=== PATIENT | female | born 1960 | race American Indian/Alaskan Native ===

== ENCOUNTER 2020-09-29 08:55 | Outpatient (REF) | payer OTHER, SELFPAY ==
[2020-09-29 09:32] LABS: Hematocrit 42.9 % (37-47); Hemoglobin 13.7 g/dl (12.0-16.0); Mean Corpuscular HGB Conc 31.9 g/dl (31.0-35.0); Mean Corpuscular Hemoglobin 25.8 pg (27.0-33.0); Mean Corpuscular Volume 80.6 fL (80-98); Mean Platelet Volume 10.7 fL (9.4-12.3); Platelet Count 334 X10*3/uL (160-400); Red Blood Count 5.32 X10*6/uL (4.20-5.50); Red Cell Distribution Width 15.4 % (11.0-16.0); White Blood Count 8.8 X10*3/uL (4.8-10.8)
[2020-09-29 10:19] LABS: Alanine Aminotransferase 21 U/L (0-31); Albumin Level 4.1 g/dL (3.5-5.0); Alkaline Phosphatase 100 U/L (39-117); Anion Gap 13 (12-20); Aspartate Amino Transferase 21 U/L (5-31); Bilirubin Total 0.7 mg/dL (0.0-1.0); Blood Urea Nitrogen 16 mg/dL (9-16); Calcium 9.6 mg/dL (8.4-10.2); Carbon Dioxide 26 mmol/L (22-29); Chloride 103 mmol/L (96-108); Cholesterol 191 mg/dL; Estimated Glomerular Filt Rate > 60; Glucose Random 87 mg/dL (60-115); HDL Cholesterol 52 mg/dL; LDL Cholesterol Calculated 108 mg/dl; Potassium 3.9 mmol/L (3.3-5.1); Sodium 138 mmol/L (135-145); Total Protein 7.7 g/dL (6.5-8.0); Triglycerides 157 mg/dL
[2020-09-29 10:40] LABS: Thyroid Stimulating Hormone 1.56 uIU/mL (0.32-4.0)
[2020-10-03 13:42] LABS: Metanephrine, Free 89 pg/mL (<=57); Normetanephrines, Free 106 pg/mL (<=148); Total Metanephrine, Free 195 pg/mL (<=205)
[2020-10-10 14:57] LABS: Aldosterone/Renin Ratio 9.9 Ratio (0.9-28.9); Plasma Renin Activity 3.23 ng/mL/h (0.25-5.82)
== END 2020-09-29 08:56 | disposition home or self-care (01) ==
LOC: HO.LAB 08:55
PROVIDERS: PCP Internal Medicine; Visit Provider Internal Medicine
DX: E78.00 Pure hypercholesterolemia, unspecified (principal); I10 Essential (primary) hypertension
CPT/HCPCS: 36415; 80053; 80061; 82088; 83835; 84443; 85027

== ENCOUNTER → 2021-01-06 10:30 | Outpatient (BNVA) | payer OTHER, SELFPAY | PROVIDERS: PCP Internal Medicine; Referring Provider Internal Medicine; Visit Provider Internal Medicine Gastroenterology | DX: Z12.11 Encounter for screening for malignant neoplasm of colon (principal); K57.90 Diverticulosis of intestine, part unspecified, without perforation or abscess without bleeding; K59.09 Other constipation; K21.9 Gastro-esophageal reflux disease without esophagitis | CPT/HCPCS: 99212 ==

== ENCOUNTER 2021-04-07 10:17 | Outpatient (REF) | payer OTHER, SELFPAY ==
--- NOTE | ~2021-04-07 | MM_ITS ---
EXAMINATION: MM SCREENING DIGITAL BREAST TOMOSYNTHESIS, BILATERAL CLINICAL INFORMATION: Screening. Asymptomatic. The lifetime risk of breast cancer based on the Tyrer-Cuzick Model is 4%. COMPARISON: Mammography: 04/01/2020, 03/27/2019, 03/21/2018 TECHNIQUE: Digital breast tomosynthesis is performed in both the craniocaudal and mediolateral oblique views along with computer-aided detection (CAD). Synthesized 2D images are generated from the tomosynthesis. Old bilateral exaggerated CC views are provided. FINDINGS: There are scattered areas of fibroglandular density (ACR BI-RADS breast composition Category b). There are no significant masses, abnormal calcifications, or other abnormalities. There are benign bilateral scattered round and rim and coarse calcifications again noted. The axilla and skin contours are unremarkable. MM/MM tomosynthesis screening BI IMPRESSION: No mammographic evidence of malignancy. ASSESSMENT: BI-RADS 2: Benign RECOMMENDATION: Routine annual mammography screening. This patient's information was entered into a reminder system with a target due date for their next mammogram.
== END 2021-04-07 10:18 | disposition home or self-care (01) ==
LOC: HO.MAMMO 10:17
PROVIDERS: PCP Internal Medicine; Visit Provider Internal Medicine
DX: Z12.31 Encounter for screening mammogram for malignant neoplasm of breast (principal)
CPT/HCPCS: 77063; 77067

== ENCOUNTER 2022-04-13 10:18 | Outpatient (REF) | payer OTHER, SELFPAY ==
--- NOTE | ~2022-04-13 | MM_ITS ---
EXAMINATION: MM SCREENING DIGITAL BREAST TOMOSYNTHESIS, BILATERAL CLINICAL INFORMATION: Screening. Asymptomatic. The lifetime risk of breast cancer based on the Tyrer-Cuzick Model is 4%. COMPARISON: Mammography: 04/07/2021, 04/01/2020, 03/27/2019 TECHNIQUE: Digital breast tomosynthesis is performed in both the craniocaudal and mediolateral oblique views along with computer-aided detection (CAD). Synthesized 2D images are generated from the tomosynthesis. Additional right MLO view is provided. FINDINGS: There are scattered areas of fibroglandular density (ACR BI-RADS breast composition Category b). There are no significant masses, abnormal calcifications, or other abnormalities. Parenchymal pattern is similar to prior studies. Again, there are scattered bilateral benign round and rim and some vascular calcifications. No developing density. The axilla and skin contours are unremarkable. MM/MM tomosynthesis screening BI IMPRESSION: No mammographic evidence of malignancy. ASSESSMENT: BI-RADS 2: Benign RECOMMENDATION: Routine annual mammography screening. This patient's information was entered into a reminder system with a target due date for their next mammogram.
== END 2022-04-13 10:19 | disposition home or self-care (01) ==
LOC: HO.MAMMO 10:18
PROVIDERS: PCP Internal Medicine; Visit Provider Internal Medicine
DX: Z12.31 Encounter for screening mammogram for malignant neoplasm of breast (principal)
CPT/HCPCS: 77063; 77067

== ENCOUNTER 2022-05-29 08:32 | Outpatient (REF) | payer OTHER, SELFPAY ==
--- NOTE | ~2022-05-29 | XR_ITS ---
EXAMINATION: XR KNEE, LEFT CLINICAL INFORMATION: Left knee pain COMPARISON: Radiographs left knee 06/26/2016 TECHNIQUE: Four views of the left knee. FINDINGS: No fracture, dislocation, destructive process. There are prominent osteoarthritic changes lateral patellofemoral joint again seen with marked joint narrowing and subchondral sclerosis and mild lateral patellar spurring. There is mild narrowing medial knee joint compartment with marginal osteophytes from the femoral condyles and tibial plateau. No erosive change or definite chondrocalcinosis. There is probable trace fluid suprapatellar bursa. Hoffa's fat pad appears normal. XR/XR knee LT 4V IMPRESSION: 1. Prominent osteoarthritic changes lateral patellofemoral joint. 2. Mild narrowing medial knee joint compartment. Probable trace effusion.
== END 2022-05-29 08:33 | disposition home or self-care (01) ==
LOC: HO.XRAY 08:32
PROVIDERS: PCP Internal Medicine; Visit Provider Pediatrics
DX: M25.562 Pain in left knee (principal)
CPT/HCPCS: 73564

== ENCOUNTER 2022-07-05 10:34 | Outpatient (REF) | payer OTHER, SELFPAY ==
--- NOTE | ~2022-07-05 | MM_ITS ---
EXAMINATION: BONE DENSITOMETRY CLINICAL INDICATION: Menopause. COMPARISON: Baseline BD dated 11/20/2013. TECHNIQUE: Using a Hello [employer] DXA System (software version: 13.1) manufactured by [employer], dual-energy x-ray absorptiometry was performed of the lumbar spine and left hip. The images are of good technical quality. Summary results are attached. FINDINGS: AP SPINE L1-L4: Current: BMD 1.105 g/cm2, Z-score 0.3, T-score -0.6, normal, 4.4% decrease from baseline (<5% change is not significant). Baseline: BMD 1.156 g/cm2. LEFT FEMUR, NECK: Current: BMD 0.922 g/cm2, Z-score 0.2, T-score -0.8, normal. Baseline: BMD 0.941 g/cm2. LEFT FEMUR, TOTAL: Current: BMD 1.091 g/cm2, Z-score 1.4, T-score 0.7, normal, 0.7% decrease from baseline (<5% change is not significant). Baseline: BMD 1.099 g/cm2. IDENTIFIED RISK FACTORS: Menopause, height loss, history of fracture (adult), low calcium intake, tobacco use (current smoker). HISTORY OF FRACTURE: Elbow. MEDICATIONS: None listed. MM/XR DEXA axial skeleton IMPRESSION: 1. DIAGNOSIS: Normal bone density based on the lowest T-score value of -0.8 in the femoral neck applying World Health Organization criteria. 2. 10-YEAR FRACTURE RISK PREDICTION, FRAX: According to the guidelines, FRAX calculation should only be performed on patients in the osteopenia bone density category. Therefore, FRAX was not performed on this patient. 3. Treatment Recommendations: NOF guidelines recommend consideration for treatment in postmenopausal women and men age 50 and older presenting with the following: -A hip or vertebral (clinical or morphometric) fracture. -T-score less than or equal to -2.5 at the femoral neck or spine after appropriate evaluation to exclude secondary causes. -Low bone mass at the hip or spine and a 10-year fracture probability by FRAX of greater than or equal to 3% for hip fracture or greater than or equal to 20% for major osteoporotic fracture based on the [place] adapted WHO algorithm. 4. Other Recommendations: All treatment decisions require clinical judgment and consideration of individual patient factors, including patient preferences, comorbidities, previous drug use, risk factors not captured in the FRAX model (e.g. frailty, falls, vitamin D deficiency, increased bone turnover, interval significant decline in bone density) and possible under or overestimation of fracture risk by FRAX. FUTURE SCAN RECOMMENDATION: People with diagnosed cases of osteoporosis or at high risk for fracture should have regular bone mineral density tests. For patients eligible for Medicare, routine testing is allowed once every 2 years. The testing frequency can be increased to one year for patients who have rapidly progressing disease, those who are receiving or discontinuing medical therapy to restore bone mass, or have additional risk factors.
== END 2022-07-05 10:35 | disposition home or self-care (01) ==
LOC: HO.MAMMO 10:34
PROVIDERS: PCP Internal Medicine; Visit Provider Advanced Practice Midwife
DX: Z13.820 Encounter for screening for osteoporosis (principal); N95.8 Other specified menopausal and perimenopausal disorders
CPT/HCPCS: 77080

== ENCOUNTER 2023-05-29 10:15 | Outpatient (REF) | payer OTHER, SELFPAY ==
--- NOTE | ~2023-05-29 | MM_ITS ---
EXAMINATION: MM SCREENING DIGITAL BREAST TOMOSYNTHESIS, BILATERAL CLINICAL INFORMATION: Screening. Asymptomatic. COMPARISON: Mammography: This study is compared with prior exams dating back to 2016. TECHNIQUE: Digital breast tomosynthesis is performed in both the craniocaudal and mediolateral oblique views along with computer-aided detection (CAD). Synthesized 2D images are generated from the tomosynthesis. FINDINGS: There are scattered areas of fibroglandular density (ACR BI-RADS breast composition Category b). There are no significant masses, abnormal calcifications, or other abnormalities. There are bilateral benign calcifications. MM/MM tomosynthesis screening BI IMPRESSION: No mammographic evidence of malignancy. ASSESSMENT: BI-RADS BI-RADS 2 - Benign Findings RECOMMENDATION: Routine annual mammography screening. 1 year F/U This examination should not preclude the clinical evaluation of a suspicious palpable abnormality. This patient's information was entered into a reminder system with a target due date for their next mammogram.
== END 2023-05-29 10:16 | disposition home or self-care (01) ==
LOC: HO.MAMMO 10:15
PROVIDERS: PCP Internal Medicine; Visit Provider Internal Medicine
DX: Z12.31 Encounter for screening mammogram for malignant neoplasm of breast (principal)
CPT/HCPCS: 77063; 77067

== ENCOUNTER → 2023-05-29 10:30 | Outpatient (BNV) | payer OTHER, SELFPAY | PROVIDERS: PCP Internal Medicine; Visit Provider Radiology Diagnostic Radiology | DX: Z12.31 Encounter for screening mammogram for malignant neoplasm of breast (principal) | CPT/HCPCS: 77063; 77067 ==

== ENCOUNTER 2023-06-27 11:18 | Outpatient (REF) | payer OTHER, SELFPAY ==
[2023-06-27 14:46] LABS: Anion Gap 13 (12-20); Blood Urea Nitrogen 15 mg/dL (9-16); Calcium 9.7 mg/dL (8.4-10.2); Carbon Dioxide 29 mmol/L (22-29); Chloride 101 mmol/L (96-108); Estimated Glomerular Filt Rate > 60; Glucose Random 92 mg/dL (60-115); Potassium 3.9 mmol/L (3.3-5.1); Sodium 139 mmol/L (135-145)
== END 2023-06-27 11:19 | disposition home or self-care (01) ==
LOC: HO.CHCLDS 11:18
PROVIDERS: Visit Provider Internal Medicine
DX: R60.0 Localized edema (principal)
CPT/HCPCS: 36415; 80048

== ENCOUNTER 2023-12-25 14:48 | Outpatient (REF) | payer MEDICARE, SELFPAY | END 2023-12-25 14:49 | disposition home or self-care (01) | LOC: HO.CHCLNP 14:48 | PROVIDERS: Visit Provider Family Medicine | DX: Z01.419 Encounter for gynecological examination (general) (routine) without abnormal findings (principal) | CPT/HCPCS: 88142 ==

== ENCOUNTER 2024-03-25 08:49 | Outpatient (REF) | payer OTHER, SELFPAY | END 2024-03-25 08:50 | disposition home or self-care (01) | LOC: HO.HOSX 08:49 | PROVIDERS: Visit Provider Physician Assistant | DX: Z13.89 Encounter for screening for other disorder (principal) ==

== ENCOUNTER 2024-04-16 10:24 | Outpatient (REF) | payer OTHER, SELFPAY ==
--- NOTE | ~2024-04-16 | XR_ITS ---
EXAMINATION: XR KNEE, RIGHT CLINICAL INFORMATION: M25.561 - Pain in right knee COMPARISON: None available. TECHNIQUE: Four views of the right knee. FINDINGS: There is normal bony mineralization. There is no fracture, dislocation, or suspicious bone lesion. There is chondrocalcinosis in the medial and lateral compartments. There is mild to moderate joint space narrowing noted medial and lateral compartments, with mild to moderate marginal osteophytic spurs. There is spurring of the tibial spines. There is more profound arthritis with gxue-aq-kjze appearance of the lateral patellofemoral joint with subchondral sclerosis, and prominent marginal osteophytic spurring. There are large laterally projecting patellar and condylar osteophytes. No significant joint effusion. Soft tissues demonstrate vascular calcifications. XR/XR knee RT 3V IMPRESSION: 1. No acute findings of the left knee joint. 2. Chondrocalcinosis with moderate medial and lateral compartment arthritis, and severe patellofemoral compartment arthritis. 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 3. No significant joint effusion. Electronically signed by: Jonny Norwood MD 06/25/2024 03:20 PM [facility]
--- NOTE | ~2024-04-16 | XR_ITS ---
EXAMINATION: XR KNEE, LEFT CLINICAL INFORMATION: M25.562 - Pain in left knee COMPARISON: 05/29/2022. TECHNIQUE: Four views of the left knee. FINDINGS: There is normal bony mineralization. There is no fracture, dislocation, or suspicious bone lesion. There is chondrocalcinosis in the medial and lateral compartments. There is mild to moderate joint space narrowing noted medial and lateral compartments, with mild to moderate marginal osteophytic spurs. There is spurring of the tibial spines. There is more profound arthritis with vrie-bu-roal appearance of the lateral patellofemoral joint with subchondral sclerosis, and prominent marginal osteophytic spurring. No significant joint effusion. There may be a small amount of increased joint fluid present. Soft tissues demonstrate vascular calcifications, and both medial and lateral superficial varicosities. XR/XR knee LT 3V IMPRESSION: 1. No acute findings of the left knee joint. 2. Chondrocalcinosis with moderate medial and lateral compartment arthritis, and severe patellofemoral compartment arthritis. 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 3. No significant joint effusion. 4. No change in the overall appearance of the left knee joint. Electronically signed by: Jonny Norwood MD 06/25/2024 03:11 PM [facility]
== END 2024-04-16 10:25 | disposition home or self-care (01) ==
LOC: HO.HOSX 10:24
PROVIDERS: PCP Internal Medicine; Visit Provider Orthopaedic Surgery
DX: M17.0 Bilateral primary osteoarthritis of knee (principal)
CPT/HCPCS: 73562; 99202

== ENCOUNTER → 2024-04-16 10:27 | Outpatient (BNV) | payer OTHER, SELFPAY | PROVIDERS: PCP Internal Medicine; Visit Provider Radiology Diagnostic Radiology | DX: M17.0 Bilateral primary osteoarthritis of knee (principal); M11.261 Other chondrocalcinosis, right knee; M11.262 Other chondrocalcinosis, left knee | CPT/HCPCS: 73562 ==

== ENCOUNTER 2024-04-16 11:03 | Outpatient (AMB) | payer OTHER, SELFPAY ==
--- NOTE | 2024-04-16 11:04 | A.OFFVIS_ITS ---
Vital Signs 04/16/24 11:07 Height 4 ft 11 in Weight 179 lb BMI 36.1 Intake Visit Reasons: Bilateral knee pain Intake Note: Shu is 63 year old female that presents with complaints of intermittent discomfort in both of her knees. She describes her discomfort as achy in nature. The patient states that she recently quit eating red meat which seems to have improved her symptoms. She has taken Tylenol which gives her mild relief. She denies any locking or giving way. Allergies No Known Allergies Allergy (Verified 04/16/24 11:07) seasonal Allergy (Unknown, Uncoded 04/16/24 11:07) Agitated Medication List - Last Reconciled 04/16/24 by Jose G Ma MD allopurinol 200 mg PO DAILY amlodipine 10 mg PO DAILY aspirin 81 mg PO DAILY atorvastatin 40 mg PO BEDTIME fluticasone propionate 50 mcg/actuation 1 spray intranasal DAILY hydralazine 10 mg PO TID metoprolol tartrate 100 mg PO BID omeprazole 20 mg PO DAILY 90 days spironolacton-hydrochlorothiaz 25-25 mg 1 tab PO DAILY [facility] Social History (Updated 01/06/21 @ 10:38 by Leighann Germain) Household Members: Children Alcohol intake: current Alcohol intake frequency: holidays/special occasions only Patient Tobacco Use Status: Current everyday Tobacco user Physical Exam Vital Signs: BMI result Body Mass Index 36.1 Const Other: Well-nourished well-developed very friendly female awake alert and oriented x3 in no acute distress Extrem Other: Bilateral lower extremity examination shows good capillary refill, no skin lesions noted, normal sensation light touch Bilateral knee examination shows minimal effusions, mild crepitus with range of motion, no instability Results Reviewed Results Reviewed: X-rays of the patient's bilateral knee show moderate joint space narrowing most significant in the patellofemoral joint, no acute bony abnormalities Assessment & Plan Assessment & Plan (1) Pain in both knees: Code(s): M25.561 - Pain in right knee; M25.562 - Pain in left knee (2) Right knee pain: Code(s): M25.561 - Pain in right knee Category: Medical (3) Left knee pain: Code(s): M25.562 - Pain in left knee Category: Medical Plan Ms. Rossi presents with intermittent bilateral knee pains due to degenerative joint disease. I had a lengthy discussion with the patient regarding the treatment options. At this point the patient's symptoms are tolerable to her. We will hold off on a cortisone injection. She will continue with her nutrition program. She will follow up with me on an as-needed basis should her symptoms worsen in any way. Feel free to call me at any time should questions regarding her orthopedic management arise. Thank you very much for asking me to see this very friendly patient. I spent 21 minutes in reviewing the patient's records and imaging studies, seeing the patient and documenting in the medical record. Orders: Orders XR knee LT 3V Today M25.562 - Pain in left knee XR knee RT 3V Today M25.561 - Pain in right knee Coding Level of Care Code New Pt Level 3 (39955) Complex EM visit Add On G2211 Diagnoses Pain in both knees M25.561; M25.562 Right knee pain M25.561 Left knee pain M25.562
[2024-04-16 11:07] VITALS: BMI 36.1
== END 2024-04-16 11:22 | disposition home or self-care (01) ==
PROVIDERS: PCP Internal Medicine; Visit Provider Orthopaedic Surgery
DX: M25.561 Pain in right knee (principal); M25.562 Pain in left knee
CPT/HCPCS: 99203; G2211

== ENCOUNTER 2024-06-03 09:39 | Outpatient (REF) | payer OTHER, SELFPAY ==
--- NOTE | ~2024-06-03 | MM_ITS ---
EXAMINATION: MM SCREENING DIGITAL BREAST TOMOSYNTHESIS, BILATERAL CLINICAL INFORMATION: Screening. Asymptomatic. COMPARISON: Mammography: Comparison is made with available priors TECHNIQUE: Digital breast mammography with tomosynthesis is performed in both the craniocaudal and mediolateral oblique views along with computer-aided detection (CAD). FINDINGS: There are scattered areas of fibroglandular density (ACR BI-RADS breast composition Category b). There are no significant masses, abnormal calcifications, or other abnormalities. MM/MM tomosynthesis screening BI IMPRESSION: No mammographic evidence of malignancy. ASSESSMENT: BI-RADS BI-RADS 1 - Negative RECOMMENDATION: Routine annual mammography screening. 1 year F/U This examination should not preclude the clinical evaluation of a suspicious palpable abnormality. This patient's information was entered into a reminder system with a target due date for their next mammogram. Electronically signed by: Vivi Skinner DO 06/11/2024 12:20 PM [facility]
== END 2024-06-03 09:40 | disposition home or self-care (01) ==
LOC: HO.MAMMO 09:39
PROVIDERS: Visit Provider Internal Medicine
DX: Z12.31 Encounter for screening mammogram for malignant neoplasm of breast (principal)
CPT/HCPCS: 77063; 77067

== ENCOUNTER → 2024-06-03 10:00 | Outpatient (BNV) | payer OTHER, SELFPAY | PROVIDERS: Visit Provider Internal Medicine | DX: Z12.31 Encounter for screening mammogram for malignant neoplasm of breast (principal) | CPT/HCPCS: 77063; 77067 ==

== ENCOUNTER 2024-08-21 10:59 | Outpatient (REF) | payer OTHER, SELFPAY ==
[2024-08-21 14:19] LABS: MANUAL DIFF FLAG NO
[2024-08-21 14:23] LABS: Basophils Percent Auto 0.5 % (0-2); Eosinophils Absolute Auto 0.2 X10*3/uL (0.0-0.4); Eosinophils Percent Auto 2.3 % (0-4); Hematocrit 42.5 % (37.0-47.0); Hemoglobin 13.8 g/dl (12.0-16.0); Imm Gran Abs Auto 0.03 X10*3/uL (0.00-0.03); Imm Gran Pct Auto 0.4 % (0.0-0.4); Lymphocytes Absolute Auto 3.1 X10*3/uL (1.2-4.9); Lymphocytes Percent Auto 41.1 % (20-40); Mean Corpuscular HGB Conc 32.5 g/dl (31.0-35.0); Mean Platelet Volume 10.8 fL (9.4-12.3); Monocytes Absolute Auto 0.6 X10*3/uL (0.1-1.2); Monocytes Percent Auto 7.7 % (2-11); Neutrophils Absolute Auto 3.6 x10*3/uL (2.0-8.3); Platelet Count 396 X10*3/uL (160-400); Red Blood Count 5.31 X10*6/uL (4.20-5.50); Red Cell Distribution Width 15.6 % (11.0-16.0); White Blood Count 7.5 X10*3/uL (4.8-10.8)
[2024-08-21 14:39] LABS: Alanine Aminotransferase 24 U/L (0-31); Albumin Level 4.2 g/dL (3.5-5.0); Alkaline Phosphatase 97 U/L (39-117); Anion Gap 12 (12-20); Aspartate Amino Transferase 38 U/L (5-31); Bilirubin Total 0.6 mg/dL (0.0-1.0); Blood Urea Nitrogen 16 mg/dL (9-16); Calcium 9.9 mg/dL (8.4-10.2); Carbon Dioxide 25 mmol/L (22-29); Chloride 106 mmol/L (96-108); Cholesterol 166 mg/dL (<200); Estimated Glomerular Filt Rate > 60; Glucose Random 86 mg/dL (60-115); HDL Cholesterol 48 mg/dL (>40); LDL Cholesterol Calculated 96 mg/dL (<100); Potassium 3.8 mmol/L (3.3-5.1); Sodium 139 mmol/L (135-145); Triglycerides 110 mg/dL (<150)
[2024-08-21 14:54] LABS: TSH reflex Free T4 2.37 uIU/mL (0.32-4.0)
[2024-08-22 08:09] LABS: ~HepC Num1 0.13 S/CO (0.00-0.79); ~Hepatitis C Antibody Nonreactive (Nonreactive)
== END 2024-08-21 11:00 | disposition home or self-care (01) ==
LOC: HO.CHCLDS 10:59
PROVIDERS: Visit Provider Internal Medicine
DX: I10 Essential (primary) hypertension (principal); E66.812 Obesity, class 2; E66.01 Morbid (severe) obesity due to excess calories; Z68.36 Body mass index [BMI] 36.0-36.9, adult
CPT/HCPCS: 36415; 80053; 80061; 84443; 85025; 86803

== ENCOUNTER 2024-11-20 11:54 | Outpatient (REF) | payer OTHER, SELFPAY ==
--- OUTSIDE RECORDS SUMMARY | 2024-11-20 14:15 | XMS_ITS | Encounter Summary ---
Author Organization [email or web address] Address [address] [facility] [address] [place] [address] Care Team Providers Care Knurling Machine Operator Name Role Phone Haresh Douglas MD Primary Care Provider [phone] [phone] Encounter Details Date Type Department Care Team (Late st Contact Info) Description 08/21/2024 Orders Only [facility]S [address] [place], [place] [phone] ProviderJoão MD Social History Tobacco Use Types Packs/Day Years Used Date Smoking Tobacco: Every Day Cigarettes 0.5 46.3 Started: 07/30/1978 Smokeless Tobacco: Never Alcohol Use Standard Drinks/Week Comments Never 0 (1 standard drink = 0.6 oz pur e alcohol) Depression Answer Date Recorded Patient Health Questionnaire-9 Score 4 02/14/2024 Patient Health Questionnaire-9 Score 4 02/14/2024 Last PHQ-9: Questionnaire Data Not on file 0 02/14/2024 Housing Stability Answer Date Recorded What is your housing situation today? I have terry morrissey 08/21/[address] you li ve. Do you have problems with any of the following? None of the above 08/21/2024 Food Insecurity Answer Date Recorded Within the past 12 months, y ou worried that your food would run out before you got money to buy more: Never True 08/21/2024 Within the past 12 months,th e food you bought just didn't last and you didn't have enough money to get more: Never True Transportation Answer Date Recorded In the past 12 months, has l ack of transportation kept you from medical appts, meetings, work or from getting things needed for daily living? No 08/21/2024 Utilities Answer Date Recorded In the past 12 months, has t he electric, gas, oil or water company threatened to shut off services in your home? No 08/21/2024 Depression Answer Date Recorded Patient Health Questionnaire-2 Score 2 02/14/2024 Internet Access Answer Date Recorded Internet Access Q1 Yes 08/21/2024 Internet Access Q2 Not on file 08/21/2024 Comments Unknown Sex and Gender Information Value Date Recorded Sex Assigned at Female 05/29/2022 10:21 AM EDT Legal Sex Female 10:21 AM EDT Gender Identity Choose not to disclose 10:21 AM EDT Sexual Orientation Choose not to disclose 2021 10:21 AM EDT documented as of this encounter Plan of Treatment Upcoming Encounters Date Type Department Care Team ([facility] st Contact Info) Description 02/26/2025 10:30 AM EDT Office Visit [facility] MED & PEDS [address] [place] [address] Haresh Douglas MD [address] [place] [address] documented as of this encounter Procedures Procedure Name Priority Date/Time Associated Diagnosis Comments COLONOSCOPY Routine 10/22/2018 3:44 PM EDT SURGICAL PATHOLOGY Routine 10/22/2018 3:40 PM EDT documented in this encounter Results * Colonoscopy (10/22/2018 3:44 PM EDT) Anatomical Region Laterality Modality Endoscopy us Historical Provider ENDOSCOPY PROCEDURE ORDER RICKIE Final Result * Surgical Pathology (10/22/2018 3:40 PM EDT) us Historical Provider LAB PATHOLOGY ORDERABLES Final Result documented in this encounter Visit Diagnoses Not on filedocumented in this encounter Additional Health Concerns Assessment Noted Time PHQ-9 Depression Total Score: 4 02/14/20 24 1:36 PM EDT documented as of this encounter Care Teams Knurling Machine Operator Relationship Specialty Start Date End Date Haresh Douglas MD [address] [place] [address] PCP - General Internal Medicine 07/30/18 documented as of this encounter
--- OUTSIDE RECORDS SUMMARY | 2024-11-20 14:15 | XMS_ITS | Encounter Summary ---
Author Organization [facility] Address [address] [place] [address] [address] [place] [address] Care Team Providers Care Water Attendant Name Role Phone Haresh Douglas MD Primary Care Provider [phone]- [phone] Reason for Visit * Reason Comments Med Refill Encounter Details Date Type Department Care Team ([facility] Contact Info) Description 08/23/2022 Refill [facility] MED & PEDS [address] [place] [address] Haresh Douglas MD [address] [place] [address] Essential (primary) hypertension Social History Tobacco Use Types Packs/Day Years Used Date Smoking Tobacco: Never Assessed Comments Unknown Sex and Gender Information Value Date Recorded Sex Assigned at Female 05/29/2022 10:21 AM EDT Legal Sex Female 10:21 AM EDT Gender Identity Choose not to disclose 10:21 AM EDT Sexual Orientation Choose not to disclose 2021 10:21 AM EDT documented as of this encounter Plan of Treatment Upcoming Encounters Date Type Department Care Team (Late Contact Info) Description 02/26/2025 10:30 AM EDT Office Visit [facility] MED [facility]EDS [address] [place], [place] [phone] Haresh Douglas MD [address] [place] [address] documented as of this encounter Visit Diagnoses Diagnosis Essential (primary) hypertension Unspecified essential hypertension documented in this encounter Care Teams Water Attendant Relationship Specialty Start Date End Date Haresh Douglas MD [address] [place] [id number] PCP - General Internal Medicine 07/30/18 documented as of this encounter
--- OUTSIDE RECORDS SUMMARY | 2024-11-20 14:15 | XMS_ITS | Encounter Summary ---
Author Organization [facility] Address [address] [place] [address] [address] [place] [address] Care Team Providers Care Quarry Extraction Worker Name Role Phone Haresh Douglas MD Primary Care Provider [phone]- [phone] Reason for Visit * Reason Comments Med Refill Encounter Details Date Type Department Care Team ([facility] Contact Info) Description 11/01/2022 Refill [facility] MED & PEDS [address] [place] [address] Haresh Douglas MD [address] [place] [address] Gastro-esophageal reflux disease without esophagitis Social History Tobacco Use Types Packs/Day Years [...] Upcoming Encounters Date Type Department Care Team ([facility] Contact Info) Description 02/26/2025 10:30 AM EDT Office Visit [facility] MED [facility] PED[facility] [address] [place] [address] Haresh Douglas MD [address] [place] [address] documented as of this encounter Visit Diagnoses Diagnosis Gastro-esophageal reflux disease without esophagitis documented in this encounter Care Teams Quarry Extraction Worker Relationship Specialty Start Date End Date Haresh Douglas MD [address] [place] [id number] PCP - General Internal Medicine 07/30/18 documented as of this encounter
--- OUTSIDE RECORDS SUMMARY | 2024-11-20 14:15 | XMS_ITS | Clinical Summary ---
Author Organization [employer] Address [address] [facility] 7[address] [place] [address] Care Team Providers Care Door Assembler Name Role Phone Haresh Douglas MD Primary Care Provider [phone]- [phone] Allergies No known active allergies Medications * This document contains information received from the source organization and may not represent a complete record from that organization. hydrALAZINE (Apresoline) 10 MG tablet take 1 tablet by oral route 3 times every day with food 022 Active amLODIPine (Norvasc) 10 MG tablet take 1 tablet by oral route every day 022 Active allopurinol (Zyloprim) 100 MG tablet TAKE 1 TABLET BY MOUTH TWICE A DAY 023 Active Diclofenac Sodium (Voltaren) 1 % gel Apply 2 g topically 3 times daily. 350 g 3 024 Active Aspirin Low Dose 81 MG EC tabletIndications:Esse ntial hypertension TAKE 1 TABLET (81 MG) BY MOUTH IN THE MORNING 90 tablet 3 024 Active spironolactone-hydroCH LOROthiazide (Aldactazide) 25-25 MG tablet TAKE 1 TABLET BY MOUTH EVERY DAY 90 tablet 3 024 Active allopurinol (Zyloprim) 100 MG tablet TAKE 1 TABLET BY MOUTH TWICE A DAY 180 tablet 1 024 Active amLODIPine (Norvasc) 10 MG tabletIndications:Esse ntial hypertension Take 1 tablet (10 mg) by mouth Once per day. 90 tablet 3 025 Active atorvastatin (Lipitor) 40 MG tabletIndications:Pure hypercholesterolemia Take 1 tablet (40 mg) by mouth Once per day. 90 tablet 1 025 Active loratadine (Claritin) 10 MG tabletIndications:Seas onal allergies Take 1 tablet (10 mg) by mouth in the morning. 90 tablet 1 025 Active metoprolol tartrate (Lopressor) 100 MG tabletIndications:Esse ntial hypertension TAKE 1 TABLET BY MOUTH TWICE A DAY 180 tablet 1 025 Active hydrALAZINE (Apresoline) 10 MG tabletIndications:Esse ntial hypertension,Essential (primary) hypertension Take 1 tablet (10 mg) by mouth 3 times daily. 270 tablet 1 025 Active omeprazole (PriLOSEC) [address] capsuleIndications:H/O gastritis TAKE 1 CAPSULE BY MOUTH EVERY DAY BEFORE A MEAL 90 capsule 1 025 Active amLODIPine (Norvasc) 10 MG tablet TAKE 1 TABLET BY MOUTH EVERY DAY 90 tablet 3 024 2024 Discontinued( Reorder (will not trigger notification to Pharmacy)) omeprazole (PriLOSEC) [address] capsule TAKE 1 CAPSULE BY MOUTH EVERY DAY BEFORE A MEAL 90 capsule 1 024 2024 Discontinued( Reorder (will not trigger notification to Pharmacy)) atorvastatin (Lipitor) 40 MG tablet TAKE 1 TABLET BY MOUTH EVERY DAY 90 tablet 1 024 2024 Discontinued( Reorder (will not trigger notification to Pharmacy)) loratadine (Claritin) 10 MG tabletIndications:Seas onal allergies TAKE 1 TABLET BY MOUTH EVERY DAY IN THE MORNING 90 tablet 1 024 2024 Discontinued hydrALAZINE (Apresoline) 10 MG tabletIndications:Esse ntial (primary) hypertension TAKE 1 TABLET BY MOUTH 3 TIMES A DAY WITH FOOD 270 tablet 1 024 2024 Discontinued( Reorder (will not trigger notification to Pharmacy)) metoprolol tartrate (Lopressor) 100 MG tabletIndications:Esse ntial hypertension TAKE 1 TABLET BY MOUTH TWICE A DAY 180 tablet 1 025 2024 Discontinued( Reorder (will not trigger notification to Pharmacy)) loratadine (Claritin) 10 MG tabletIndications:Seas onal allergies TAKE 1 TABLET BY MOUTH EVERY DAY IN THE MORNING 90 tablet 1 025 2024 Discontinued( Reorder (will not trigger notification to Pharmacy)) Active Problems Problem Noted Date Diagnosed Date Grief 02/14/2024 Assessment & Plan (02/14/2024 1:51 PM EDT): PROGRESS NOTE: ID: Shu is a 63 y.o. cis-female with MH services including OP Psychotherapy; No previous hx of MH dx or sx who presents for grief. During IBH Consult Shu presenting with grief. Shu loss three family members since 2015 and most recent on 2022. She reported sxs such as sadness, isolating, crying spells, consistent yearning, loneliness, anhedonia, avoiding reminders, emotional pain. ; for a period of 18+ mo, for all symptoms in the context of brother passing on 2015, and of two grandsons due to overdose, most recent on 2022. Shu reported she used effective coping mechanisms from previous therapist, and the support from her family is enough at this time. PLAN: Further services needed, but declined Cervical cancer screening 12/25/2023 Assessment & Plan (12/26/2023 12:41 PM EDT): 63 y.o. here for cervical cancer screening. Will be last pap if normal. Seasonal allergies 10/29/2018 07/12/2023 Morbid obesity 03/07/2012 07/12/2023 Essential hypertension 09/08/2011 Pure hypercholesterolemia 09/08/20112022 Encounters Date Type Department Care Team Description 11/20/2024 10:30 AM EDT Office Visit [facility] [address] [place] [address] Haresh Douglas MD Essential hypertension (Primary Dx); Pure hypercholesterolemia; Seasonal allergies; Essential (primary) hypertension; H/O gastritis; Trigger finger of right thumb; Transaminitis 11/20/2024 Travel 11/20/2024 Refill [facility] [address] [place] [address] Haresh Douglas MD 11/19/2024 Refill [facility] [address] [place] [address] Haresh Douglas MD Seasonal allergies 09/11/2024 Refill [facility] [address] [place] [address] Haresh Douglas MD Essential hypertension from Last 3 Months Social History Tobacco Use Types Packs/Day Years Used Date Smoking Tobacco: Every Day Cigarettes 0.5 46.3 Started: 07/30/1978 Smokeless Tobacco: Never Tobacco Cessation:Ready to Q uit: Not Asked; Counseling Given: Not Answered Alcohol Use Standard Drinks/Week Comments Never 0 [...] not to disclose 2021 10:21 AM EDT Last Filed Vital Signs Vital Sign Reading Time Taken Comments Blood Pressure 135/85 11/20/2024 10:45 AM EDT Pulse 58 11/20/2024 10:45 AM EDT Temperature 36.7 ??C (98 ??F) 11/20/2024 10:45 AM EDT Respiratory Rate 20 11/20/2024 10:45 AM EDT Oxygen Saturation 96% 11/20/2024 10:45 AM EDT Inhaled Oxygen Concentration - - Weight 88.5 kg (195 lb) 11/20/2024 10:45 AM EDT Height 152 cm (4' 11.84 ) 11/20/2024 10:45 AM ED T Body Mass Index 38.29 11/20/2024 10:45 AM EDT Plan of Treatment Upcoming Encounters Date Type Department Care Team ([facility] st Contact Info) Description 02/26/2025 10:30 AM EDT Office Visit [facility] [address] [place] [address] Haresh Douglas MD [address] [place] [address] Health Maintenance Due Date Last Done Comments CT Colonography 1960 FIT DNA/Cologuard 1960 FIT 1960 FOBT 1960 Sigmoidoscopy 1960 Lung Cancer Screening 12/28/2024 Postpo emery from 12/25/2023 (Patient Refused) Influenza Vaccine (#1) 2025 Postp oned from 03/30/2024 (Patient Refused) Depression Screening 02/13/2025 02/14/2024, 02/14/20 24 Alcohol/Substance Use Screening 08/21/2025 08/21/2024 COVID-19 Vaccine ( - season) 2025 05/23/2021, 04/27/2021 Postponed from 03/30/2024 (Patient Refused) Pneumococcal Vaccine: 50+ Years (2 of 2 - PCV) 08/21/2025 11/21/2016 Postponed from 11/21/2017 (Patient Refused) SDOH Screening 08/21/2025 08/21/2024 Zoster Vaccines (1 of 2) 08/21/2025 Pos tponed from 2008 (Patient Refused) Tobacco Screening 11/20/2025 11/20/2024 DTaP/Tdap/Td Vaccines (2 - Td or Tdap) 01/09/2026 01/10/2016 Mammogram 06/03/2026 06/03/2024, 05/01, 04/13/2022, Additional history exists Colonoscopy 10/22/2028 10/22/2018 Colorectal Cancer Screening 10/22/2028 Lipid Panel 08/21/2029 08/21/2024, 04/30, 09/29/2020 RSV Patients and Patients Aged 60 years or older (1 - 1-dose 75+ series) 2033 HPV/Cotest Discontinued 06/20/2022, 04/03/2017 Cervical Cancer Screening Discontinued Pap Smear Discontinued 12/25/2023, 06/20/2022 Hepatitis C Screening Completed 08/21/2024 HIB Vaccines Aged Out No longer eligi ble based on patient's age to complete this topic HPV Vaccines Aged Out No longer eligi ble based on patient's age to complete this topic Hepatitis A Vaccines Aged Out No long er eligible based on patient's age to complete this topic Hepatitis B Vaccines Aged Out No long er eligible based on patient's age to complete this topic IPV Vaccines Aged Out No longer eligi ble based on patient's age to complete this topic Meningococcal Vaccine Aged Out No onofre shantell eligible based on patient's age to complete this topic RSV under 20 months Aged Out No longe r eligible based on patient's age to complete this topic Rotavirus Vaccines Aged Out No longer eligible based on patient's age to complete this topic Procedures Procedure Name Priority Date/Time Associated Diagnosis Comments HEPATITIS C AB W/REFL TO HCV RNA, QN, PCR Routine 08/21/2024 11:01 AM EST Essential hypertension Class 2 severe obesity due to excess calories with serious comorbidity and body mass index (BMI) of 36.0 to 36.9 in adult (CMS/HCC) LIPID PANEL, STANDARD Routine 08/21/2024 11:01 AM EST Essential hypertension Class 2 severe obesity due to excess calories with serious comorbidity and body mass index (BMI) of 36.0 to 36.9 in adult (CMS/HCC) BI MAMMOGRAM SCREENING TOMOSYNTHESIS BILATERAL Routine 06/03/2024 9:41 AM EST PAP SMEAR Routine 12/25/2023 12:00 AM EDT Cervical cancer screening THINPREP IMAGING PAP AND HPV MRNA E6/E7 WITH REFLEX TO HPV 16,18/45 Routine 06/20/2022 10:26 AM EST COLONOSCOPY Routine 10/22/2018 3:44 PM EDT from Last 3 Months or Most Recently Relevant to Health Maintenance Results * Hepatitis C Antibody with Reflex to HCV, RNA, Quantitative, Real-Time PCR (08/21/2024 11:01 AM EST) Hepatitis C Antibody Nonreactive Nonreactive [facility] Comment:Antibodies to HCV no t detected; does not exclude early acuteHCV infection. Blood Venous blood specimen / Unknown 08/21/2024 11:01 AM EST 08/21/2024 2:15 PM EST us Haresh Douglas MD LAB BLOOD ORDERABLES Final Result [facility] [address] [place] [phone] * Lipid Panel, Standard (08/21/2024 11:01 AM EST) Triglycerides 110 <150 mg/dL [facility] Comment:Desirable Triglyceri de: less than 150 mg/dLBorderline High Triglyceride 150-199 mg/dLHigh Triglyceride: 200-499 mg/dLVery High Triglyceride: greater than or equal to 5OO mg/dL Cholesterol 166 <200 mg/dL [facility] Comment:Desirable Cholestero l: less than 200 mg/dLBorderline High Cholesterol: 200-239 mg/dLHigh Cholesterol: greater than 239 mg/dL LDL Cholesterol Calculated 96 <100 mg/dL [facility] Comment:Desirable LDL: less than 100 mg/dLNear Optimal/Above Optimal LDL: 110- 129 mg/dLBorderline High LDL: 130-159 mg/dLHigh LDL: 160-189 mg/dLVery High LDL: greater than or equal to 190 mg/dL HDL Cholesterol 48 >40 mg/dL [facility] Comment:Desirable HDL: great er than 40 mg/dL Note: This HDL assay may give artificially low results in patients with liver disease. Blood Venous blood specimen / Unknown 08/21/2024 11:01 AM EST 08/21/2024 2:15 PM EST us Haresh Douglas MD LAB BLOOD ORDERABLES Final Result [facility] [address] [place] [address] [phone] * BI Mammogram Screening Tomosynthesis Bilateral (06/03/2024 9:41 AM EST) Anatomical Region Laterality Modality Breast Bilateral Mammography 06/03/2024 9:41 AM EST Narrative 06/11/2024 12:23 PM EST ? [facility] ? [address] ?[place] [address] ? Mammography Report ? Signed ? Patient: Rossi,Shu ?MR#: [id number] ?? 4 ? : 1960 ?Acct:[id number] ? Age/Sex: 64 / F ?ADM Date: 11/05/24 ? Loc: HO.MAMMO ? Attending Dr: Haresh Douglas MD ? Ordering Physician: Haresh Douglas MD ?Results: 1 ?? Negative ? Date of Service: 06/03/24 ?Follow Up: 1 Year From Orig ?? inal Mammogram ? Procedure(s): MM tomosynthesis screening BI ?? Accession Number(s): [id number] ? cc: Haresh Douglas MD ? EXAMINATION: ?? MM SCREENING DIGITAL BREAST TOMOSYNTHESIS, BILATERAL ? CLINICAL INFORMATION: ? Screening. Asymptomatic. ? COMPARISON: ?? Mammography: Comparison is made with available priors ? TECHNIQUE: ?? Digital breast mammography with tomosynthesis is performed in both the ?? craniocaudal and mediolateral oblique views along with computer-aided ?? detection (CAD). ? FINDINGS: ?? There are scattered areas of fibroglandular density (ACR BI-RADS breast ?? composition Category b). ? There are no significant masses, abnormal calcifications, or other ?? abnormalities. ? MM/MM tomosynthesis screening BI ?? IMPRESSION: ?? No mammographic evidence of malignancy. ? ASSESSMENT: ? BI-RADS BI-RADS 1 - Negative ? RECOMMENDATION: ?? Routine annual mammography screening. ? 1 year F/U ? This examination should not preclude the clinical evaluation of a ?? suspicious palpable abnormality. ? This patient's information was entered into a reminder system with a ?? target due date for their next mammogram. ? Electronically signed by: ??Vivi Sadijoseph DO ??06/11/2024 12:20 PM EST ?? RP ? Dictated By: ?Vivi Skinner DO ? Signed By: ?<Electronically signed by Vivi Skinner, DO in OV> ? 06/11/24 1220 ? DD/ 0941 ? TD/TT: 06/03/24 1000 ? Vp Account Director: ? Procedure Note Macho, Image - 06/11/2024 [facility] [address] [place] [address] [place], [place] [address] Mammography Report Signed Patient: Alisa Rossi#: [id number] 4 : 8Acct:[id number] Age/Sex: 64 / FADM Date: 06/03/24 Loc: HO.MAMMO Attending Dr: Haresh Douglas MD Ordering Physician: Haresh Douglas MDResults: 1 Negative Date of Service: 06/03/24Follow Up: 1 Year From Orig ina Mammogram Procedure(s): MM tomosynthesis screening BI Accession Number(s): [id number] cc: Haresh Douglas MD EXAMINATION: MM SCREENING DIGITAL BREAST TOMOSYNTHESIS, BILATERAL CLINICAL INFORMATION: Screening. Asymptomatic. COMPARISON: Mammography: Comparison is made with available priors TECHNIQUE: Digital breast mammography with tomosynthesis is performed in both the craniocaudal and mediolateral oblique views along with computer-aided detection (CAD). FINDINGS: There are scattered areas of fibroglandular density (ACR BI-RADS breast composition Category b). There are no significant masses, abnormal calcifications, or other abnormalities. MM/MM tomosynthesis screening BI IMPRESSION: No mammographic evidence of malignancy. ASSESSMENT: BI-RADS BI-RADS 1 - Negative RECOMMENDATION: Routine annual mammography screening. 1 year F/U This examination should not preclude the clinical evaluation of a suspicious palpable abnormality. This patient's information was entered into a reminder system with a target due date for their next mammogram. Electronically signed by: Vivi Skinner DO 06/11/2024 12:20 PM EST Dictated By: Vivi Skinner DO Signed By: <Electronically signed by Vivi Skinner DO in OV> 06/11/24 1220 DD/ 0941 TD/TT: 06/03/24 1000 Vp Account Director: us Haresh Douglas MD IMG BI PROCEDURES Final Res ult * Pap Smear (12/25/2023 12:00 AM EDT) Swab Cervical swab / Unknown 12/25/2023 12/26/2023 10:30 AM EDT Narrative [facility] - 01/14/2024 5:10 PM EDT ----- ------- Name: Shu Rossi ?Age/Sex: 63/F ? : 1960 Unit#: [id number] ?? Attend Dr: Verna Luong MD ?Re12/25/23 ?Status: DEP REF ? Location: HO.CHCLNP ? Disch: ? ----- ------- SPEC : [id number] ?RECD: 12/26/23-0 ? STATUS: ??SOUT ? REQ NUM: [id number] ? BERNABE: 12/25/23-0000 ? SUBM DR: Verna Luong MD ? ENTERED: ??12/26/23-1445 ?SP TYPE: Pap Smr ?OTHR : ? ORDERED: ??Pap Smear ? Interpretation ?? Satisfactory for evaluation. ?? No endocervical cells seen. ?? Negative for intraepithelial lesion or malignancy. ?Clinical Information LMP: Postmenopausal Previous PAP test: Unknown date/findings ? Material Received ?? ThinPrep-Cervical ----- ------- Signed (signature on file) Tonya Milan Iman 01/14/240 ? ----- ------- ? END OF REPORT ? us Verna Luong MD LAB CYTOLOGY ORDERABLES Final Result [facility] [address] [place] [address] [phone] * THINPREP TIS PAP AND HPV mRNA E6/E7 WITH REFLEX TO HPV 16,18/45 (06/20/2022 10:26 AM EST) Clinical Information: None given [facility] COMMENT SEE COMMENT [facility] Comment: EXPLANATORY NOTE: ? The Pap is a screening test for cervical cancer. It is ?? not a diagnostic test and is subject to false negative ?? and false positive results. It is most reliable when a ?? satisfactory sample, regularly obtained, is submitted ?? with relevant clinical findings and history, and when ?? the Pap result is evaluated along with historic and ?? current clinical information. ?? COMMENT: This Pap test has been evaluated with computer assisted technology. [facility] Counseling Services Director : SEE COMMENT [facility] Comment: KN, CT(ASCP) CT screening location: [address] ??[id number] HPV nRNA E6/E7 Not Detected Not Detected [facility] Comment: Methodology: Copier Field Service Technician-Mediated Amplification This assay detects E6/E7 viral messenger RNA (mRNA) from 14 high-risk HPV types (16,18,31,33,35,39,45,51,52,56,58,59,66,68). ? Cervical sources are required for HPV testing. If a vaginal source from a patient who has had a total hysterectomy with removal of cervix was ?? submitted, please contact the testing laboratory for alternative testing options. ?? For additional information, please refer to http://education.[employer]/faq/HSA015y1 (This link if provided for information/ educational purposes only.) Interpretation/R esult: Negative for intraepithelial lesion or malignancy. [facility] LMP: MENOPAUSAL [facility] Prev. BX: NONE GIVEN [facility] Prev. PAP: NIL/HPV NEG 2017 CO [facility] SOURCE: None given [facility] Statement Of Adequacy: SEE COMMENT [facility] Comment: Satisfactory for evaluation. Endocervical/transformation zone component absent. 06/20/2022 10:2 6 AM EST Concetta Zamarripa CNM LAB PATHOLOGY ORDERABLES Final Result [facility] * Colonoscopy (10/22/2018 3:44 PM EDT) Anatomical Region Laterality Modality Endoscopy Historical Provider MD ENDOSCOPY PROCEDURE ORDER RICKIE Final Result from Last 3 Months or Most Recently Relevant to Health Maintenance Insurance [facility] STANDARD [facility] LONG TERM OPTIONS (HMO D-SNP) Care Teams Door Assembler Relationship Specialty Start Date End Date Haresh Douglas MD [address] [place] [phone] PCP - General Internal Medicine 07/30/18
--- OUTSIDE RECORDS SUMMARY | 2024-11-20 14:15 | XMS_ITS | Encounter Summary ---
Author Organization [employer] Address [address] [facility] 7[address] [place] [address] Care Team Providers Care Greenhouse Specialist Name Role Phone Haresh Douglas MD Primary Care Provider [phone] Encounter Details Date Type Department Care Team (Latest Contact Info) Description 11/20/2024 Travel Social History Tobacco Use Types Packs/Day Years [...] Encounters Date Type Department Care Team (Late st Contact Info) Description 02/26/2025 10:30 AM EDT Office Visit [facility] [address] [place] [address] Haresh Douglas MD [address] [place] [address] documented as of this encounter Visit Diagnoses Not on filedocumented in this encounter Additional Health Concerns Assessment Noted Time PHQ-9 Depression Total Score: 4 02/14/20 24 1:36 PM EDT documented as of this encounter Care Teams Greenhouse Specialist Relationship Specialty Start Date End Date Haresh Douglas MD [address] [place] [address] PCP - General Internal Medicine 07/30/18 documented as of this encounter
--- OUTSIDE RECORDS SUMMARY | 2024-11-20 14:15 | XMS_ITS | Encounter Summary ---
Author Organization [employer] Address [address] [facility] 7[address] [place] [address] Care Team Providers Care Precision Inspector Name Role Phone Haresh Douglas MD Primary Care Provider [phone]- [phone] Reason for Visit * Reason Comments Med Refill Encounter Details Date Type Department Care Team ([facility] st Contact Info) Description 11/20/2024 Refill [facility] [address] [place] [address] Haresh Douglas MD [address] [place] [address] Social History Tobacco Use Types Packs/Day Years [...] Upcoming Encounters Date Type Department Care Team ([facility] st Contact Info) Description 02/26/2025 10:30 AM EDT Office Visit [facility] [address] [place] [address] Haresh Douglas MD [address] [place] [address] documented as of this encounter Visit Diagnoses Not on filedocumented in this encounter Additional Health Concerns Assessment Noted Time PHQ-9 Depression Total Score: 4 02/14/20 24 1:36 PM EDT documented as of this encounter Care Teams Precision Inspector Relationship Specialty Start Date End Date Haresh Douglas MD [address] [place] [address] PCP - General Internal Medicine 07/30/18 documented as of this encounter
--- OUTSIDE RECORDS SUMMARY | 2024-11-20 14:15 | XMS_ITS | Encounter Summary ---
Author Organization [employer] [facility] Address [address] [place] [address] [address] [place] [address] Care Team Providers Care Fine Wire Drawer Name Role Phone Haresh Douglas MD Primary Care Provider [phone]- [phone] Encounter Details Date Type Department Care Team ([facility] Contact Info) Description 07/07/2022 Orders Only [facility] [address] [place] [address] Concetta Zamarripa CNM [address] [place] [address] Social History Tobacco Use Types Packs/Day Years [...] Description 02/26/2025 10:30 AM EDT Office Visit [facility] [address] [place], [place] [phone] Haresh Douglas MD [address] [place], [place] [phone] documented as of this encounter Visit Diagnoses Not on filedocumented in this encounter Care Teams Fine Wire Drawer Relationship Specialty Start Date End Date Haresh Douglas MD [address] [place] [address] PCP - General Internal Medicine 07/30/18 documented as of this encounter
--- OUTSIDE RECORDS SUMMARY | 2024-11-20 14:15 | XMS_ITS | Encounter Summary ---
Author Organization [facility] Address [address] [facility] 7t [place] [address] Care Team Providers Care Children Counselor Name Role Phone Haresh Douglas MD Primary Care Provider [phone]- [phone] Reason for Referral * Imaging (Urgent) - Closed Specialty Diagnoses / Procedures Referred By Contac t Referred To Contact Radiology Diagnoses Swelling of left parotid gland Procedures CT Soft Tissue Neck w/ Contrast May Torres MD [address] [place] [address] Phone: tel: fax: Diagnostic Imaging, [facility] [address] [facility] [address] [place], [place] Phone: tel: fax: Referral ID Status Reason Start Date Expiration Date Visits Re quested Visits Authorized [id number] Closed 06/28/2023 06/27/2024 1 1 Encounter Details Date Type Department Care Team ([facility] st Contact Info) Description 06/28/2023 Orders Only [facility] [address] [place], [place] [phone] May Torres MD [address] [place], [place] [phone] Swelling of left parotid gland (Primary Dx) Social History Tobacco Use Types Packs/Day Years [...] Upcoming Encounters Date Type Department Care Team ([facility] st Contact Info) Description 02/26/2025 10:30 AM EDT Office Visit [facility] [address] [place] [address] Haresh Douglas MD [address] [place] [address] Scheduled Orders Name Type Priority Associated Diagnoses Orde r Schedule CT Soft Tissue Neck w/ Contrast Imaging Urgent Swelling of left parotid gland Expected: 06/28/2023, Expires: 06/28/2024 documented as of this encounter Visit Diagnoses Diagnosis Swelling of left parotid gland- Primary documented in this encounter Care Teams Children Counselor Relationship Specialty Start Date End Date Haresh Douglas MD [address] [place] [address] PCP - General Internal Medicine 07/30/18 documented as of this encounter
--- OUTSIDE RECORDS SUMMARY | 2024-11-20 14:15 | XMS_ITS | Encounter Summary ---
Author Organization [employer] [facility] Address [address] [place] [address] [address] [address] Care Team Providers Care Cadmium Liquor Maker Name Role Phone Haresh Douglas MD Primary Care Provider [phone] Encounter Details Date Type Department Care Team (Late Contact Info) Description 11/01/2022 Orders Only [facility] MED [facility] PEDS [address] [place] [address] Jennifer Babin RN [address] [place], [place] [phone] Social History Tobacco Use Types Packs/Day Years [...] Description 02/26/2025 10:30 AM EDT Office Visit [facility] [address] [place] [address] Haresh Douglas MD [address] [place] [address] documented as of this encounter Visit Diagnoses Not on filedocumented in this encounter Care Teams Cadmium Liquor Maker Relationship Specialty Start Date End Date Haresh Douglas MD [address] [place] [address] PCP - General Internal Medicine 07/30/18 documented as of this encounter
--- OUTSIDE RECORDS SUMMARY | 2024-11-20 14:15 | XMS_ITS | Encounter Summary ---
Author Organization [employer] [facility] Address [address] [place] [address] 7 [place] [address] Care Team Providers Care Shuttle Filler Name Role Phone Haresh Douglas MD Primary Care Provider [phone] Reason for Referral * Imaging (Routine) - Authorized Specialty Diagnoses / Procedures Referred By Miriam mathis Referred To Contact Radiology Diagnoses Transaminitis Procedures US Abdomen Complete Haresh Douglas MD [address] [place] [address] Phone: tel: fax: [address] Phone: tel: fax: Referral ID Status Reason Start Date Expiration Date V isits Requested Visits Authorized [id number] Authorized 11/20/2024 11/20/2025 1 1 * Consultation (Routine) - Pending Review Specialty Diagnoses / Procedures Referred By Miriam mathis Referred To Contact Orthopaedic Surgery Diagnoses Trigger finger of right thumb Haresh Douglas MD [address] [place] [address] Phone: tel: fax: Referral ID Status Reason Start Date Expiration Date Visits Requested Visits Authorized [id number] Pending Review Specialty Services Required 11/20/2024 11/20/2025 1 1 Reason for Visit * Reason Comments Hypertension Hyperlipidemia Trigger finger right thumb. Encounter Details Date Type Department Care Team ([facility] st Contact Info) Description 11/20/2024 10:30 AM EDT Office Visit [facility] & PEDS [address] [place] [address] Haresh Douglas MD [address] [place] [address] Essential hypertension (Primary Dx); Pure hypercholesterolemia; Seasonal allergies; Essential (primary) hypertension; H/O gastritis; Trigger finger of right thumb; Transaminitis Social History Tobacco Use Types Packs/Day Years [...] AM EDT documented as of this encounter Last Filed Vital Signs Vital Sign Reading [...] Mass Index 38.29 11/20/2024 10:45 AM EDT documented in this encounter Progress Notes * Haresh Douglas MD - 11/20/2024 10:30 AM EDT SUBJECTIVE Shu Rossi is a 64 y.o. adult who presents for Hypertension, Hyperlipidemia, and Trigger finger right thumb.. Hypertension This is a chronic problem. The problem is controlled. Pertinent negatives include no anxiety, blurred vision, chest pain, headaches, malaise/fatigue, neck pain, orthopnea, palpitations, peripheral edema, PND, shortness of breath or sweats. There are no associated agents to hypertension. There is nohistory of chronic renal disease. Hyperlipidemia This is a chronic problem. Exacerbating diseases include obesity. Shu has no history of chronic renal disease, diabetes, hypothyroidism, liver disease or nephrotic syndrome. Pertinent negatives include no chest pain or shortness of breath. History of right index finger getting locked with flexion especially in the morning. Patient is also complaining of intermittent discomfort of the first MCP joint.. No reported redness/swelling. Patient Active Problem List Diagnosis Essential hypertension Morbid obesity (CMS/HCC) Pure hypercholesterolemia Seasonal allergies Cervical cancer screening Grief No Known Allergies Current Outpatient Medications on File Prior to Visit Medication Sig Dispense Refill allopurinol (Zyloprim) 100 MG tablet TAKE 1 TABLET BY MOUTH TWICE A DAY allopurinol (Zyloprim) 100 MG tablet TAKE 1 TABLET BY MOUTH TWICE A DAY 180 tablet 1 amLODIPine (Norvasc) 10 MG tablet take 1 tablet by oral route every day Aspirin Low Dose 81 MG EC tablet TAKE 1 TABLET (81 MG) BY MOUTH IN THE MORNING 90 tablet 3 Diclofenac Sodium (Voltaren) 1 % gel Apply 2 g topically 3 times daily. 350 g 3 hydrALAZINE (Apresoline) 10 MG tablet take 1 tablet by oral route 3 times every day with food spironolactone-hydroCHLOROthiazide (Aldactazide) 25-25 MG tablet TAKE 1 TABLET BY MOUTH EVERY DAY 90 tablet 3 [DISCONTINUED] amLODIPine (Norvasc) 10 MG tablet TAKE 1 TABLET BY MOUTH EVERY DAY 90 tablet 3 [DISCONTINUED] atorvastatin (Lipitor) 40 MG tablet TAKE 1 TABLET BY MOUTH EVERY DAY 90 tablet 1 [DISCONTINUED] hydrALAZINE (Apresoline) 10 MG tablet TAKE 1 TABLET BY MOUTH 3 TIMES A DAY WITH ATEX727 tablet 1 [DISCONTINUED] loratadine (Claritin) 10 MG tablet TAKE 1 TABLET BY MOUTH EVERY DAY IN THE MORNING 90 tablet 1 [DISCONTINUED] loratadine (Claritin) 10 MG tablet TAKE 1 TABLET BY MOUTH EVERY DAY IN THE MORNING 90 tablet 1 [DISCONTINUED] metoprolol tartrate (Lopressor) 100 MG tablet TAKE 1 TABLET BY MOUTH TWICE A DAY 180tablet 1 [DISCONTINUED] omeprazole (PriLOSEC) [address] capsule TAKE 1 CAPSULE BY MOUTH EVERY DAY BEFORE A MEAL 90 capsule 1 No current facility-administered medications on file prior to visit. Review of Systems Constitutional: Negative for malaise/fatigue. Eyes: Negative for blurred vision. Respiratory: Negative for shortness of breath. Cardiovascular: Negative for chest pain, palpitations, orthopnea and PND. Musculoskeletal: Negative for neck pain. Neurological: Negative for headaches. OBJECTIVE Vitals: 11/20/24 1037 11/20/24 1045 BP: (!) 155/85 135/85 BP Location: Left arm Right arm Patient Position: Sitting Sitting BP Cuff Size: Adult long Adult long Pulse: 56 58 Resp: 20 20 Temp: 98 ??F (36.7 ??C) TempSrc: Oral SpO2: 98% 96% Weight: 195 lb (88.5 kg) 195 lb (88.5 kg) Height: 4' 11.84 (1.52 m) 4' 11.84 (1.52 m) Physical Exam Constitutional: General: Shu is not in acute distress. Appearance: Normal appearance. Shu is obese. Shu is not ill-appearing, toxic-appearing or diaphoretic. Cardiovascular: Rate and Rhythm: Normal rate. Pulmonary: Effort: Pulmonary effort is normal. Musculoskeletal: Right hand: Normal. Left hand: Normal. Cervical back: Normal range of motion. Neurological: Mental Status: Shu is alert. Assessment/Plan Assessment/Plan Diagnoses and all orders for this visit: Essential hypertension Comments: Stable No changes DASH diet Orders: - amLODIPine (Norvasc) 10 MG tablet; Take 1 tablet (10 mg) by mouth Once per day. - metoprolol tartrate (Lopressor) 100 MG tablet; TAKE 1 TABLET BY MOUTH TWICE A DAY - hydrALAZINE (Apresoline) 10 MG tablet; Take 1 tablet (10 mg) by mouth 3 times daily. Pure hypercholesterolemia Comments: Low-cholesterol diet Continue with Lipitor 40 mg daily Orders: - atorvastatin (Lipitor) 40 MG tablet; Take 1 tablet (40 mg) by mouth Once per day. Seasonal allergies - loratadine (Claritin) 10 MG tablet; Take 1 tablet (10 mg) by mouth in the morning. Essential (primary) hypertension - hydrALAZINE (Apresoline) 10 MG tablet; Take 1 tablet (10 mg) by mouth 3 times daily. H/O gastritis Comments: Head of bed elevation Avoid dietary irritants Avoid eating 3 hours prior to bedtime Orders: - omeprazole (PriLOSEC) [address] capsule; TAKE 1 CAPSULE BY MOUTH EVERY DAY BEFORE A MEAL Trigger finger of right thumb - Referral to Orthopaedic Surgery; Future Transaminitis Comments: Labs reviewed Workup ordered. Patient will be contacted with results. Orders: - Hepatitis A,B,C Profile; Future - Anti-smooth muscle antibody titer; Future - TIMOTEO Screen,IFA, with Reflex to Titer and Pattern; Future - Sed Rate by Modified Westergren; Future - US Abdomen Complete; Future - Iron And Total Iron Binding Capacity; Future - Prothrombin Time-INR; Future - Alpha 1 Antitrypsin; Future - Immunoglobulins Panel, Serum; Future documented in this encounter Miscellaneous Notes * Patient Education Note - Haresh Douglas MD - 11/20/2024 4:34 PM EDT Images from the original note were not included. Patient Education Table of Contents Elevated Liver Enzymes To view videos and all your education online visit, [email or web address] or scan this QR code with your smartphone. Access to this content will in one year. Elevated Liver Enzymes When the liver gets hurt, it lets out substances called enzymes into the blood. This makes the enzyme levels in your blood go up. These are elevated liver enzymes. A blood test can detect this. The most common enzymes released are alanine transaminase (ALT) and aspartate transaminase (AST). These two enzymes are also called transaminases. What causes elevated liver enzymes? Elevated liver enzymes can be caused by: Liver problems, like hepatitis B or C. Major muscle injury. Regular or heavy alcohol use. Certain medicines and supplements. If liver enzymes are a little higher than normal people often do not have symptoms. Your health care provider may do more blood tests or imaging tests to help find the cause of your elevated liver enzymes. Follow these instructions at home: Medicines Ask about changing or stopping: Any medicines you take. Any vitamins, herbs, or supplements you take. Do not take aspirin or ibuprofen unless you're told to. Alcohol use Do not drink alcohol if: ? Your provider tells you not to drink. ? You're , may be , or plan to become . If you drink alcohol: ? Limit how much you have to: ? 0?1 drink a day if you're female. ? 0?2 drinks a day if you're male. ? Know how much alcohol is in your drink. In the [place] one drink is one 12 oz bottle of beer (355 mL), one 5 oz glass of wine (148 mL), or one 1? oz glass of hard liquor (44 mL). Lifestyle To help your liver heal, your provider may tell you to: ? Eat a healthy diet. ? Exercise. ? Lose weight. ? Limit foods and drinks that have a lot of sugar. General instructions Drink more fluids as told. Ask what things are safe for you to do at home. Ask when you can go back to work or school. Keep all follow-up visits. The provider will check if your liver enzymes are going down. Contact a health care provider if: You have pain or swelling in your belly. Your skin or eyes turn yellow. You lose weight without trying. You throw up or feel like you may throw up. This information is not intended to replace advice given to you by your health care provider. Make sure you discuss any questions you have with your health care provider. Document Released: 2023-11-19 Document Updated: 2023-11-19 Document Reviewed: 2023-11-19 Elsevier Patient Education ? 2024 [employer] documented in this encounter Plan of Treatment Upcoming Encounters Date Type Department Care Team ([facility] st Contact Info) Description 02/26/2025 10:30 AM EDT Office Visit [facility] MED & PEDS [address] [place] [address] Haresh Douglas MD [address] [place] [address] Scheduled Orders Name Type Priority Associated Diagnoses Orde r Schedule Hepatitis A,B,C Profile Lab Routine Transaminitis Expected: 11/20/2024, Expires: 11/20/2025 Anti-smooth muscle antibody titer Lab Routine Transaminitis Expected: 11/20/2024 (Approximate), Expires: 11/20/2025 TIMOTEO Screen,IFA, with Reflex to Titer and Pattern Lab Routine Transaminitis Expected: 11/20/2024 (Approximate), Expires: 11/20/2025 Sed Rate by Modified Westergren Lab Routine Transaminitis Expected: 11/20/2024, Expires: 11/20/2025 US Abdomen Complete Imaging Routine Transaminitis Expected: 11/20/2024, Expires: 11/20/2025 Iron And Total Iron Binding Capacity Lab Routine Transaminitis Expected: 11/20/2024, Expires: 11/20/2025 Prothrombin Time-INR Lab Routine Transaminitis Expected: 11/20/2024, Expires: 11/20/2025 Alpha 1 Antitrypsin Lab Routine Transaminitis Expected: 11/20/2024 (Approximate), Expires: 11/20/2025 Immunoglobulins Panel, Serum Lab Routine Transaminitis Expected: 11/20/2024 (Approximate), Expires: 11/20/2025 Scheduled Referrals Name Type Priority Associated Diagnoses Order Schedule Referral to Orthopaedic Surgery Outpatient Referral Routine Trigger finger of right thumb Expected: 11/20/2024 (Approximate), Expires: 11/20/2025 documented as of this encounter Visit Diagnoses Diagnosis Essential hypertension- Primary Unspecified essential hypertension Pure hypercholesterolemia Seasonal allergies Allergic rhinitis, cause unspecified Essential (primary) hypertension Unspecified essential hypertension H/O gastritis Trigger finger of right thumb Transaminitis Nonspecific elevation of levels of transaminase or lactic acid dehydrogenase (LDH) documented in this encounter Additional Health Concerns Assessment Noted Time PHQ-9 Depression Total Score: 4 02/14/20 24 1:36 PM EDT documented as of this encounter Care Teams Shuttle Filler Relationship Specialty Start Date End Date Haresh Doulgas MD [address] [place] [id number] PCP - General Internal Medicine 07/30/18 documented as of this encounter
--- OUTSIDE RECORDS SUMMARY | 2024-11-20 14:15 | XMS_ITS | Encounter Summary ---
Author Organization [employer] Address [address] [facility] 7t [place] [address] Care Team Providers Care Advance Scout Name Role Phone Haresh Douglas MD Primary Care Provider [phone] Reason for Visit * Reason Comments Med Refill Encounter Details Date Type Department Care Team ([facility] Contact Info) Description 11/19/2024 Refill [facility] MED & PEDS [address] [place], [place] [phone] Haresh Douglas MD [address] [place] [address] Seasonal allergies Social History Tobacco Use Types Packs/Day Years [...] your housing situation today? I have terry sing 08/21/[address] you li [...] Description 02/26/2025 10:30 AM EDT Office Visit [facility] PEDS [address] [place] [address] Haresh Douglas MD [address] [place] [address] documented as of this encounter Visit Diagnoses Diagnosis Seasonal allergies Allergic rhinitis, cause unspecified documented in this encounter Additional Health Concerns Assessment Noted Time PHQ-9 Depression Total Score: 4 02/14/20 24 1:36 PM EDT documented as of this encounter Care Teams Advance Scout Relationship Specialty Start Date End Date Haresh Douglas MD [address] [place] [address] PCP - General Internal Medicine 07/30/18 documented as of this encounter
--- OUTSIDE RECORDS SUMMARY | 2024-11-20 14:15 | XMS_ITS | Encounter Summary ---
Author Organization [employer] [facility] Address [address] [place] [address] 7 [place] [address] Care Team Providers Care Remote Mortgage Underwriter Name Role Phone Haresh Douglas MD Primary Care Provider [phone] Encounter Details Date Type Department Care Team ([facility] Contact Info) Description 06/27/2023 Orders Only [facility] MED & PEDS [address] [place] [address] Haresh Douglas MD [address] [place] [address] Social History Tobacco Use Types Packs/Day Years [...] Description 02/26/2025 10:30 AM EDT Office Visit [facility] P[facility] [address] [place] [address] Haresh Douglas MD [address] [place] [address] documented as of this encounter Visit Diagnoses Not on filedocumented in this encounter Care Teams Remote Mortgage Underwriter Relationship Specialty Start Date End Date Haresh Douglas MD [address] [place] [address] PCP - General Internal Medicine 07/30/18 documented as of this encounter
--- OUTSIDE RECORDS SUMMARY | 2024-11-20 14:15 | XMS_ITS | Encounter Summary ---
Author Organization [employer] [facility] Address [address] [place] [address] 7 [place] [address] Care Team Providers Care [employer] Rep Name Role Phone Haresh Douglas MD Primary Care Provider [phone] Encounter Details Date Type Department Care Team (Late Contact Info) Description 12/19/2022 Orders Only [facility] MED & PEDS [address] [place] [address] Theresa Persaud LPN Social History Tobacco Use Types Packs/Day Years [...] Description 02/26/2025 10:30 AM EDT Office Visit [facility] MED & PEDS [address] [place] [address] Haresh Douglas MD [address] [place] [address] documented as of this encounter Visit Diagnoses Not on filedocumented in this encounter Care Teams [employer] Rep Relationship Specialty Start Date End Date Haresh Douglas MD [address] [place] [address] PCP - General Internal Medicine 07/30/18 documented as of this encounter
[2024-11-20 14:33] LABS: Prothrombin Time 11.2 SEC (10.9-12.4)
[2024-11-20 14:39] LABS: Iron 67 mcg/dL (30-160); Percent Iron Saturation 27 % (15-50); Total Iron Binding Capacity 252 mcg/dL (228-428); Unsaturated Iron Binding 185 ug/dL
[2024-11-21 03:50] LABS: HBS Num1 115.31 mIU/mL (0-7.99); HBc Num1 9.46 S/CO (0.00-0.79); Hepatitis B Surface Antigen Negative (Negative); ~HepC Num1 0.16 S/CO (0.00-0.79); ~Hepatitis B Surface Antibody REACTIVE (Nonreactive); ~Hepatitis C Antibody Nonreactive (Nonreactive)
[2024-11-21 03:53] LABS: IgA 462 mg/dL (70-320); IgG 1835 mg/dL (600-1540); IgM 50 mg/dL (50-300)
[2024-11-21 04:28] LABS: HBc Num2 9.37 S/CO; Hepatitis B Core Antibody Reactive (Nonreactive)
[2024-11-25 07:59] LABS: Hepatitis A Antibody IgM 0.15 Index (0-0.79); ~Hepatitis A Antibody IgM Nonreactive (Nonreactive)
[2024-11-25 11:24] LABS: Anti Nuclear Antibody Screen POSITIVE (NEGATIVE)
== END 2024-11-20 11:55 | disposition home or self-care (01) ==
LOC: HO.CHCLDS 11:54
PROVIDERS: Visit Provider Internal Medicine
DX: R74.01 Elevation of levels of liver transaminase levels (principal)
CPT/HCPCS: 36415; 82784; 83540; 85610; 86038; 86039; 86704; 86706; 86709; 86803; 87340

== ENCOUNTER 2025-01-02 09:38 | Outpatient (REF) | payer OTHER, SELFPAY ==
--- NOTE | ~2025-01-02 | US_ITS ---
EXAMINATION: US ABDOMEN HISTORY: transaminitis TECHNIQUE: Real-time grayscale ultrasound imaging of the abdomen was performed and images were reviewed. COMPARISON: There are no prior studies available for comparison. FINDINGS: Liver: The right lobe of the liver measures 16.5 cm in size. The left lobe of the liver measures 9.9 cm in size. The liver demonstrates increased echotexture, consistent with steatosis. No focal mass or intrahepatic biliary ductal dilatation is identified. There is normal hepatopedal flow in the portal vein. Gallbladder and biliary tree: The gallbladder is unremarkable, without evidence of calculi, wall thickening, or pericholecystic fluid. There is no sonographic Sequeira sign. The common bile duct is normal in caliber measuring 3 mm. Kidneys: The right kidney measures 10.4 cm in length. The left kidney measures 10.3 cm in length. The kidneys are unremarkable, without evidence of masses, hydronephrosis, or calculi. Pancreas: The pancreatic head, neck, and body are unremarkable. The pancreatic tail is obscured by bowel gas. Spleen: The spleen is normal in size and contour, measuring 8.8 cm in length. Abdominal aorta and inferior vena cava: The visualized portions of the abdominal aorta and inferior vena cava are normal in caliber. There is no free fluid in the abdomen. US/US abdomen complete IMPRESSION: Hepatomegaly and hepatic steatosis. Electronically signed by: Xavier Mistry MD 01/02/2025 10:19 AM EDT
--- OUTSIDE RECORDS SUMMARY | 2025-01-02 10:15 | XMS_ITS | Encounter Summary ---
Author Organization [employer] Address [address] [place] [address] Care Team Providers Care Demolition Engineer Name Role Phone Haresh Douglas MD Primary Care Provider [phone] Reason for Referral * Consultation (Routine) - Authorized Specialty Diagnoses / Procedures Referred By Contdesi t Referred To Contact Hematology and Oncology Diagnoses Hypergammaglobulinemia Haresh Douglas MD [address] [place] [address] Phone: tel: fax: Lexie Judge MD [address] [place] [address] Phone: tel: fax: Referral ID Status Reason Start Date Expiration Date Visits Requested Visits Authorized [id number] Authorized Specialty Services Required 11/25/2024 11/25/2025 1 1 Encounter Details Date Type Department Care Team (Latest Contact Info) Description 11/25/2024 Orders Only [facility] MED & PEDS [address] [place], [place] [phone] Haresh Douglas MD [address] [place] [address] Hypergammaglobulinemia (Primary Dx) Social History Tobacco Use Types Packs/Day Years Used Date Smoking Tobacco: Every Day Cigarettes 0.5 46.4 Started: 07/30/1978 Smokeless Tobacco: Never Alcohol Use [...] Description 02/26/2025 10:30 AM EDT Office Visit [facility] MED & PEDS [address] [place], [place] [phone] Haresh Douglas MD [address] [place] [address] Scheduled Referrals Name Type Priority Associated Diagnoses Order Schedule Referral to Hematology / Oncology Outpatient Referral Routine Hypergammaglobuline gary Expected: 11/25/2024 (Approximate), Expires: 11/25/2025 documented as of this encounter Visit Diagnoses Diagnosis Hypergammaglobulinemia- Primary Other specified diseases of blood and blood-forming organs documented in this encounter Additional Health Concerns Assessment Noted Time PHQ-9 Depression Total Score: 4 02/14/20 24 1:36 PM EDT documented as of this encounter Care Teams Demolition Engineer Relationship Specialty Start Date End Date Haresh Douglas MD [address] [place] [address] PCP - General Internal Medicine 07/30/18 documented as of this encounter
== END 2025-01-02 09:39 | disposition home or self-care (01) ==
LOC: HO.US 09:38
PROVIDERS: PCP Internal Medicine; Visit Provider Internal Medicine
DX: R74.01 Elevation of levels of liver transaminase levels (principal)
CPT/HCPCS: 76700

== ENCOUNTER → 2025-01-02 09:40 | Outpatient (BNV) | payer OTHER, SELFPAY | PROVIDERS: PCP Internal Medicine; Visit Provider Radiology Diagnostic Radiology | DX: R16.0 Hepatomegaly, not elsewhere classified (principal) | CPT/HCPCS: 76700 ==

== ENCOUNTER → 2025-01-14 16:50 | Outpatient (BNV) | payer OTHER, SELFPAY | PROVIDERS: PCP Internal Medicine; Referring Provider Internal Medicine; Visit Provider Internal Medicine Medical Oncology | DX: D80.1 Nonfamilial hypogammaglobulinemia (principal) | CPT/HCPCS: 99204 ==

== ENCOUNTER 2025-01-22 10:20 | Outpatient (REF) | payer OTHER, SELFPAY ==
--- NOTE | ~2025-01-22 | XR_ITS ---
EXAMINATION: XR HAND 3 OR MORE VIEWS RIGHT HISTORY: M79.641 - Pain in right hand COMPARISON: There are no prior studies available for comparison. FINDINGS: Four views of the right hand are submitted. Osseous mineralization is normal. There is no fracture or dislocation. The joint spaces are preserved. The soft tissues are unremarkable. XR/XR hand RT min 3V IMPRESSION: Unremarkable examination of the right hand. Electronically signed by: Xavier Mistry MD 01/22/2025 11:21 AM EDT
--- OUTSIDE RECORDS SUMMARY | 2025-01-22 11:59 | XMS_ITS | Encounter Summary ---
Author Organization [employer] Address [address] [place] [address] Care Team Providers Care Postal Support Employee Name Role Phone Haresh Douglas MD Primary Care Provider [phone] Reason for Referral * Consultation (Routine) - Closed Specialty Diagnoses / Procedures Referred By Contac t Referred To Contact Hematology and Oncology Diagnoses Hypergammaglobulinemia Haresh Douglas MD [address] [place] [address] Phone: tel: fax: Lexie Judge MD [address] [place] [phone] Phone: tel: fax: Referral ID Status Reason Start Date Expiration Date V isits Requested Visits Authorized [id number] Closed Specialty Services Required 11/25/2024 11/25/2025 1 1 Encounter Details Date Type Department Care Team (Latest Contact Info) Description 11/25/2024 Orders Only [facility] [address] [place] [address] Haresh Douglas MD [address] [place], [place] [phone] Hypergammaglobulinemia (Primary Dx) Social History Tobacco Use Types Packs/Day Years Used Date Smoking Tobacco: Every Day Cigarettes 0.5 46.5 Started: 07/30/1978 Smokeless Tobacco: Never Alcohol Use [...] Description 02/26/2025 10:30 AM EDT Office Visit [facility] [address] [place] [address] Haresh Douglas MD [address] [place], [place] [phone] documented as of this encounter Procedures Procedure Name Priority Date/Time Associated Diagnosis Comments AMB REFERRAL TO HEMATOLOGY / ONCOLOGY Routine 01/15/2025 Hypergammaglobulinemia documented in this encounter Results * Referral to Hematology / Oncology (01/15/2025) Haresh Douglas MD OUTPATIENT REFERRAL ORDERAB LES Final Result documented in this encounter Visit Diagnoses Diagnosis Hypergammaglobulinemia- Primary Other specified diseases of blood and blood-forming organs documented in this encounter Additional Health Concerns Assessment Noted Time PHQ-9 Depression Total Score: 4 02/14/20 24 1:36 PM EDT documented as of this encounter Care Teams Postal Support Employee Relationship Specialty Start Date End Date Haresh Douglas MD [address] [place] [phone] PCP - General Internal Medicine 07/30/18 documented as of this encounter
== END 2025-01-22 10:21 | disposition home or self-care (01) ==
LOC: HO.HOSX 10:20
DX: M65.311 Trigger thumb, right thumb (principal)
CPT/HCPCS: 73130; 99202

== ENCOUNTER 2025-01-22 10:40 | Outpatient (AMB) | payer OTHER, SELFPAY ==
--- NOTE | 2025-01-22 10:49 | MHC.OFFVIS ---
Vital Signs 01/22/25 10:59 Height 4 ft 11 in Weight 175 lb BMI 35.3 Intake Visit Reasons: New Prob: right thumb pain Intake Note: Shu is a 64 year old right hand dominant female who presents today for a new problem visit for evaluation of right thumb pain. Patient reports catching and locking of this digit. Patient states catching and locking started about a month ago. Reports locking and catching happens constantly. Patient complaints of swelling in the morning, having stabbing pain. Denies having an previous injury and has not had any treatment. Allergies No Known Allergies Allergy (Verified 01/22/25 10:58) seasonal Allergy (Unknown, Uncoded 01/22/25 10:58) Agitated HPI HPI New Prob: right thumb pain: Details: Shu is a 64 year old right hand dominant female who presents today for a new problem visit for evaluation of right thumb pain. Patient reports catching and locking of this digit. Patient states catching and locking started about a month ago. Reports locking and catching happens constantly. Patient complaints of swelling in the morning, having stabbing pain. Denies having an previous injury and has not had any treatment. [facility] Social History Household Members: Children Housing: House Alcohol intake: current Alcohol intake frequency: holidays/special occasions only Patient Tobacco Use Status: Current everyday Tobacco user Tobacco use type: Cigarette Second Hand Smoke Exposure: No service: No Current occupational status: disabled Review of Systems Const All systems reviewed & are unremarkable except as noted in HPI and below Physical Exam Vital Signs: BMI result Body Mass Index 35.3 Extrem Other: Patient is alert, oriented, and in no acute distress. Neuro: Normal sensation of the tips of all digits of the right hand at this time Vascular: Cap refill brisk Pain: Tenderness to palpation of the A1 neema of right thumb Pain with locking and catching of right thumb ROM: Visible and palpable locking and catching of the right thumb noted Patient is able to make a closed fist and extend all other digits of the right hand fully and without difficulty Skin: No lacerations or abrasions. General: No ecchymosis, erythema, or evidence of infection. Psych: Appears grossly normal Affect normal Attitude cooperative Assessment & Plan Assessment & Plan (1) Trigger thumb, right thumb: Code(s): M65.311 - Trigger thumb, right thumb Category: Medical Plan 1. Right trigger thumb Patient is educated about this condition Patient is educated about the treatment options available At this time, patient states she is uncomfortable getting signed up for surgery today, but would like to have some time to think about it prior to surgery We will schedule appointment for 4 weeks from now to discuss trigger release Orders: Orders XR hand RT min 3V 01/22/25 M79.641 - Pain in right hand Coding Level of Care Code New Pt Level 3 (40898) Diagnoses Trigger thumb, right thumb M65.311
[2025-01-22 10:59] VITALS: BMI 35.3
== END 2025-01-22 11:23 | disposition home or self-care (01) ==
LOC: HO.HOS 10:40
PROVIDERS: PCP Internal Medicine
DX: M65.311 Trigger thumb, right thumb (principal)
CPT/HCPCS: 99203

== ENCOUNTER → 2025-01-22 10:41 | Outpatient (BNV) | payer OTHER, SELFPAY | PROVIDERS: Visit Provider Radiology Diagnostic Radiology | DX: M79.641 Pain in right hand (principal) | CPT/HCPCS: 73130 ==

== ENCOUNTER 2025-02-20 10:33 | Outpatient (AMB) | payer OTHER, SELFPAY ==
--- NOTE | 2025-02-20 10:45 | MHC.OFFVIS ---
Vital Signs 02/20/25 10:46 Height 4 ft 11 in Weight 175 lb BMI 35.3 Intake Visit Reasons: OV-Discuss R Trigger Thumb Treament Intake Note: Shu is a 64 year old right hand dominant female who presents today for a follow up of Right Trigger Thumb. At her last visit she was hesitant to sign up for surgery and wanted to think about it - today she would like to re-discuss treatment options. Allergies No Known Allergies Allergy (Verified 02/20/25 10:51) seasonal Allergy (Unknown, Uncoded 02/20/25 10:51) Agitated HPI HPI OV-Discuss R Trigger Thumb Treament: Details: Shu is a 64 year old right hand dominant female who presents today for a follow up of Right Trigger Thumb. At her last visit she was hesitant to sign up for surgery and wanted to think about it - today she would like to re-discuss treatment options. Reports ongoing locking and catching of the right thumb as well as significant pain at the base of the digit. [facility] Social History Household Members: Children Housing: House Alcohol intake: current Alcohol intake frequency: holidays/special occasions only Patient Tobacco Use Status: Current everyday Tobacco user Tobacco use type: Cigarette Second Hand Smoke Exposure: No service: No Current occupational status: disabled Review of Systems Const All systems reviewed & are unremarkable except as noted in HPI and below Physical Exam Vital Signs: BMI result Body Mass Index 35.3 Extrem Other: Patient is alert, oriented, and in no acute distress. Neuro: Normal sensation of the tips of all digits of the right hand at this time Vascular: Cap refill brisk Pain: Tenderness to palpation of the A1 neema of right thumb Pain with locking and catching of right thumb ROM: Visible and palpable locking and catching of the right thumb noted Patient is able to make a closed fist and extend all other digits of the right hand fully and without difficulty Skin: No lacerations or abrasions. General: No ecchymosis, erythema, or evidence of infection. Psych: Appears grossly normal Affect normal Attitude cooperative Assessment & Plan Assessment & Plan (1) Trigger thumb, right thumb: Code(s): M65.311 - Trigger thumb, right thumb Category: Medical Plan 1. Right trigger thumb I educated the patient about the condition. I discussed both operative and nonoperative treatment options. The patient would like to proceed with surgery. The risks and benefits of operative treatment were discussed with the patient and the patient wishes to proceed with surgery. These risks include, but are not limited to, risk of damage to blood vessels, nerves, tendons, infection, recurrence, incomplete relief of preoperative symptoms, persistent pain, possible need for further surgery, and the risks associated with regional blocks and/or anesthesia. Plan is to take the patient to the operating room at some point in the next few weeks for the following procedures: 1. Right trigger thumb release under local All of the preoperative paperwork including the consent was discussed today. All of the patient's questions were answered in the clinic today. The patient understands that they will be in contact with our epic specialist to discuss scheduling their procedure. Patient denies diabetes, blood thinners, asthma, heart issues, lung issues, kidney issues, or current smoking. Coding Level of Care Code Est Pt Level 4 (13826) Diagnoses Trigger thumb, right thumb M65.311
--- OUTSIDE RECORDS SUMMARY | 2025-02-20 10:45 | XMS_ITS | Encounter Summary ---
Author Organization [employer] Address [address] [place] [address] Care Team Providers Care Motorcycle Maker Name Role Phone Haresh Douglas MD Primary Care Provider [phone] Reason for Referral * Consultation (Routine) - Closed Specialty Diagnoses / Procedures Referred By Contac t Referred To Contact Hematology and Oncology Diagnoses Hypergammaglobulinemia Haresh Douglas MD [address] [place] [address] Phone: tel: fax: Lexie Judge MD [address] [place] [phone] Phone: tel: fax: Referral ID Status Reason Start Date Expiration Date V isits Requested Visits Authorized [id number] Closed Specialty Services Required 11/25/2024 11/25/2025 1 1 Encounter Details Date Type Department Care Team (Latest Contact Info) Description 11/25/2024 Orders Only [facility] [address] [place] [address] Haresh Douglas MD [address] [place], [place] [phone] Hypergammaglobulinemia (Primary Dx) Social History Tobacco Use Types Packs/Day Years Used Date Smoking Tobacco: Every Day Cigarettes 0.5 46.6 Started: 07/30/1978 Smokeless Tobacco: Never Alcohol Use [...] Description 02/26/2025 10:30 AM EDT Office Visit [facility] [address] [place] [address] Haresh Douglas MD [address] [place], [place] [phone] documented as of this encounter Procedures Procedure [...] documented as of this encounter Care Teams Motorcycle Maker Relationship Specialty Start Date End Date Haresh Douglas MD [address] [place] [id number] PCP - General Internal Medicine 07/30/18 documented as of this encounter
[2025-02-20 10:46] VITALS: BMI 35.3
== END 2025-02-20 11:03 | disposition home or self-care (01) ==
LOC: HO.HOS 10:34
PROVIDERS: PCP Internal Medicine
DX: M65.311 Trigger thumb, right thumb (principal)
CPT/HCPCS: 99214

== ENCOUNTER → 2025-02-20 10:33 | Outpatient (BNVA) | payer OTHER, SELFPAY | PROVIDERS: PCP Internal Medicine | DX: M65.311 Trigger thumb, right thumb (principal) | CPT/HCPCS: 99212 ==